=== PATIENT | male | born 1970 | race Caucasian/White ===

== ENCOUNTER 2022-02-17 17:29 | Emergency (ER) | payer OTHER ==
[2022-02-17] MEDS ORDERED: Sodium Chloride 0.9% 10 ML Syringe FLUSH PRN (17:41)
[2022-02-17 18:34] LABS: ESTIMATED GFR 103 mL/min (>60)
[2022-02-17] MEDS ORDERED: Lidocaine 1% 10 ML MDV INJECT ONE (19:18)
[2022-02-17] MEDS ORDERED: Acetaminophen/HYDROcodone 325-5 MG Tab PO ONE (19:30)
== END 2022-02-17 21:13 | disposition home or self-care (01) ==
LOC: JD.ED 17:29
DX: S32.020A Wedge compression fracture of second lumbar vertebra, initial encounter for closed fracture (principal); S02.2XXB Fracture of nasal bones, initial encounter for open fracture; S01.21XA Laceration without foreign body of nose, initial encounter; V97.89XA Other air transport accidents, not elsewhere classified, initial encounter
CPT/HCPCS: 12011; 36415; 70450; 70486; 72070; 72125; 72131; 80053; 83690; 85025; 99284; A9270; 72020